=== PATIENT | female | born 1970 | race African-American/Black ===

== ENCOUNTER 2017-04-21 20:12 | Emergency (ER) | payer OTHER ==
[2017-04-21] MEDS ORDERED: DEXAMETHASONE SOD PHOS INJ 10 MG/1 ML VIAL IM ONE (20:40)
[2017-04-21] MEDS ORDERED: DIAZEPAM INJ 10 MG/2 ML DISP.SYRIN IM ONE (20:40)
[2017-04-21] MEDS ORDERED: KETOROLAC TROMETHAMINE 60 MG/2 ML SDV IM ONE (20:40)
--- NOTE | 2017-04-21 20:47 | ER Document Report ---
ED General - General Chief Complaint: Back Pain Stated Complaint: BACK PAIN Time Seen by Provider: 04/21/17 20:40 Mode of Arrival: Ambulatory Information source: Patient Notes: 47-year-old female history of chronic back pain presents with complaints of back spasm. 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 Has had this pain for 10 years, has used many medications in the past. Patient denies any cauda equina concerns TRAVEL OUTSIDE OF THE [place] IN LAST 30 DAYS: No - HPI Onset: Just prior to arrival Onset/Duration: Sudden Quality of pain: Cramping Severity: Moderate Pain Level: 3 Associated symptoms: Body/muscle aches Exacerbated by: Movement Relieved by: Other Similar symptoms previously: Yes Recently seen / treated by doctor: Yes - Related Data Allergies/Adverse Reactions: No Known Allergies Allergy (Verified 08/07/16 07:32) Past Medical History - Social History Smoking Status: Current Every Day Smoker Cigarette use (# per day): Yes Chew tobacco use (# tins/day): No Smoking Education Provided: No Frequency of alcohol use: None Drug Abuse: None Family History: Reviewed & Not Pertinent Patient has suicidal ideation: No Patient has homicidal ideation: No - Past Medical History Cardiac Medical History: Reports: Hx Hypertension Renal/ Medical History: Denies: Hx Peritoneal Dialysis Psychiatric Medical History: Reports: Hx Depression Past Surgical History: Reports: Hx Section - x3 - Immunizations Hx Diphtheria, Pertussis, Tetanus Vaccination: Yes - >10 yrs Review of Systems - Review of Systems Notes: REVIEW OF SYSTEMS: CONSTITUTIONAL : Denies fever, chills, or sweats. Denies recent illness. EENT: Denies eye, ear, throat, or mouth pain or symptoms. Denies nasal or sinus congestion or discharge. Denies throat, tongue, or mouth swelling or difficulty swallowing. CARDIOVASCULAR: Denies chest pain. Denies palpitations or racing or irregular heart beat. Denies ankle edema. RESPIRATORY: Denies cough, cold, or chest congestion. Denies shortness of breath, difficulty breathing, or wheezing. GASTROINTESTINAL: Denies abdominal pain or distention. Denies nausea, vomiting , or diarrhea. Denies blood in vomitus, stools, or per rectum. Denies black, tarry stools. Denies constipation. GENITOURINARY: Denies difficulty urinating, painful urination, burning, frequency, blood in urine, or discharge. FEMALE GENITOURINARY: Denies vaginal bleeding, heavy or abnormal periods, irregular periods. Denies vaginal discharge or odor. MUSCULOSKELETAL: Admits to back pain SKIN: Denies rash, lesions or sores. HEMATOLOGIC : Denies easy bruising or bleeding. LYMPHATIC: Denies swollen, enlarged glands. NEUROLOGICAL: Denies confusion or altered mental status. Denies passing out or loss of consciousness. Denies dizziness or lightheadedness. Denies headache. Denies weakness or paralysis or loss of use of either side. Denies problems with gait or speech. Denies sensory loss, numbness, or tingling. Denies seizures. PSYCHIATRIC: Denies anxiety or stress. Denies depression, suicidal ideation, or homicidal ideation. ALL OTHER SYSTEMS REVIEWED AND NEGATIVE. PHYSICAL EXAMINATION: GENERAL: Well-appearing, well-nourished and in moderate distress HEAD: Atraumatic, normocephalic. EYES: Pupils equal round and reactive to light, extraocular movements intact, conjunctiva are normal. ENT: Nares patent, oropharynx clear without exudates. Moist mucous membranes. NECK: Normal range of motion, supple without lymphadenopathy LUNGS: Breath sounds clear to auscultation bilaterally and equal. No wheezes rales or rhonchi. HEART: Regular rate and rhythm without murmurs ABDOMEN: Soft, nontender, nondistended abdomen. No guarding, no rebound. No masses appreciated. Female : deferred Musculoskeletal: Tenderness all throughout spasms of the back NEUROLOGICAL: Cranial nerves grossly intact. Normal speech, normal gait. Normal sensory, motor exams PSYCH: Normal mood, normal affect. SKIN: Warm, Dry, normal turgor, no rashes or lesions noted. Dictation was performed using [employer] voice recognition software Physical Exam - Vital signs Vitals: Temp Pulse Resp BP Pulse Ox 98.6 F 116 H 28 H 213/95 H 97 04/21/17 20:16 04/21/17 20:16 04/21/17 20:16 04/21/17 20:16 04/21/17 20:16 Course - Re-evaluation Re-evalutation: 04/21/17 20:47 Patient has no cauda equina concerns is otherwise well-appearing no distress. Patient will be discharged home after pain relief Patient instructed on risks and benefits of medications prescribed. Denies any concerns regarding such. After performing a Medical Screening Examination, I estimate there is LOW risk for EXPANDING OR RUPTURED ABDOMINAL AORTIC ANEURYSM, CAUDA EQUINA SYNDROME, EPIDURAL MASS LESION, or HERNIATED DISK CAUSING SEVERE SPINAL STENOSIS, thus I consider the discharge disposition reasonable. I have reevaluated this patient multiple times and no significant life threatening changes are noted. The patient and I have discussed the diagnosis and risks, and we agree with discharging home and close follow-up. We also discussed returning to the Emergency Department immediately if new or worsening symptoms occur with the understanding that symptoms and presentations can change. We have discussed the symptoms which are most concerning (e.g., saddle anesthesia, urinary or bowel incontinence or retention, changing or worsening pain) that necessitate immediate return. - Vital Signs Vital signs: Temp Pulse Resp BP Pulse Ox 98.6 F 116 H 28 H 213/95 H 97 04/21/17 20:16 04/21/17 20:16 04/21/17 20:16 04/21/17 20:16 04/21/17 20:16 Discharge - Discharge Clinical Impression: HTN (hypertension) Qualifiers: Hypertension type: essential hypertension Qualified Code(s): I10 - Essential ( primary) hypertension Back pain Qualifiers: Back pain location: low back pain Chronicity: acute Back pain laterality: bilateral Sciatica presence: without sciatica Qualified Code(s): M54.5 - Low back pain Condition: Stable Disposition: HOME, SELF-CARE Instructions: Low Back Pain ([facility]) Additional Instructions: Follow up with your physician tomorrow for further care or return to the ED IMMEDIATELY if symptoms worsen or new concerns occur. If you cannot afford to follow up with your primary care physician a list of low cost clinics have been provided at the end of your discharge papers as well. Prescriptions: Ketorolac Tromethamine [Toradol 10 mg Tablet] 10 mg PO Q6HP PRN #20 tablet PRN Reason: Diazepam [Valium 5 mg Tablet] 5 mg PO QIDP PRN #15 tablet PRN Reason: Prednisone [Deltasone 20 mg Tablet] 3 tab PO DAILY 5 Days tablet Forms: Return to Work, Parent Work Note
[2017-04-21 21:18] VITALS: BP 175/85
== END 2017-04-21 21:18 | disposition home or self-care (01) ==
LOC: ER 20:12
DX: I10 Essential (primary) hypertension (principal); M54.5 Low back pain; M54.9 Dorsalgia, unspecified; G89.29 Other chronic pain; F17.210 Nicotine dependence, cigarettes, uncomplicated
CPT/HCPCS: 99283; 96372; J3360; J1885; J1100

== ENCOUNTER 2017-05-23 07:23 | Emergency (ER) | payer OTHER ==
[2017-05-23] MEDS ORDERED: ALBUTEROL SULFATE 0.083% NEB 2.5 MG/3 ML AMPUL NEB ONE (07:58)
--- NOTE | 2017-05-23 07:58 | ER Document Report ---
ED Respiratory Problem - General Mode of Arrival: Ambulatory Information source: Patient TRAVEL OUTSIDE OF THE [place] IN LAST 30 DAYS: No - HPI Patient complains to provider of: Cough Onset: Other - see narrative Associated symptoms: Other - see narrative <WAYNE FELTON - Last Filed: 05/23/17 08:30> <MINNIE WELCH - Last Filed: 05/23/17 11:32> - General Chief Complaint: Breathing Difficulty Stated Complaint: DIFFICULTY BREATHING Time Seen by Provider: 05/23/17 07:43 Notes: Patient is a 47 year old female that presents to the emergency department today with multiple generalized complaints. Patient states her symptoms began 5 days ago with an "irritable cough". Patient also complains of a fever which spiked at 102 last night. Patient states that she developed sharp stabbing chest pain at 0400 this morning which increased in severity with deep breathing. Patient also mentions nausea, vomiting, and shortness of breath. Patient states she has used Theraflu, Tylenol cold, and Robitussin with minimal relief. Patient states she is not on any HTN meds because she "just found out" she had HTN one month ago after an evaluation in this ED. Patient mentions that she has noticed hand/ foot swelling off and on for the last several months. Patient denies any diarrhea. (WAYNE FELTON) - Related Data Allergies/Adverse Reactions: No Known Allergies Allergy (Verified 05/23/17 07:27) Past Medical History - General Information source: Patient, [facility] Records - Social History Smoking Status: Current Every Day Smoker Cigarette use (# per day): Yes Frequency of alcohol use: None Drug Abuse: None Lives with: Family Family History: Reviewed & Not Pertinent - Past Medical History Cardiac Medical History: Reports: Hx Hypertension - on no meds Psychiatric Medical History: Reports: Hx Depression Past Surgical History: Reports: Hx Section - x3 - Immunizations Hx Diphtheria, Pertussis, Tetanus Vaccination: Yes - >10 yrs <WAYNE FELTON - Last Filed: 05/23/17 08:30> Review of Systems - Review of Systems Constitutional: See HPI, Fever EENT: See HPI, Nose congestion Cardiovascular: See HPI, Chest pain Respiratory: See HPI, Cough, Short of breath Gastrointestinal: See HPI, Nausea, Vomiting. denies: Diarrhea Genitourinary: No symptoms reported Female Genitourinary: No symptoms reported Musculoskeletal: No symptoms reported Skin: No symptoms reported Hematologic/Lymphatic: No symptoms reported Neurological/Psychological: No symptoms reported -: Yes All other systems reviewed and negative <WAYNE FELTON - Last Filed: 05/23/17 08:30> Physical Exam - Vital signs Interpretation: Hypertensive <WAYNE FELTON - Last Filed: 05/23/17 08:30> <MINNIE WELCH - Last Filed: 05/23/17 11:32> - Vital signs Vitals: Temp Pulse Resp BP Pulse Ox 98.4 F 95 20 218/94 H 98 05/23/17 07:27 05/23/17 07:27 05/23/17 07:27 05/23/17 07:27 05/23/17 07:27 - Notes Notes: PHYSICAL EXAM GENERAL: Alert, interacts well. No acute distress. Hoarse sounding voice. Appears uncomfortable. HEAD: Normocephalic, atraumatic. EYES: Pupils equal, round, and reactive to light. Extraocular movements intact. ENT: Oral mucosa moist, tongue midline. Nasal congestion. Right sided turbinate edema. Cerumen impaction in bilateral external auditory canals. Cobblestoning in posterior oropharynx. NECK: Full range of motion. Supple. Trachea midline. LUNGS: Expiratory wheezing bilaterally, wet cough, coughs consistently with deep breathing, no rales or rhonchi. Appears mildly short of breath, particularly with coughing. HEART: Regular rate and rhythm. No murmurs, gallops, or rubs. ABDOMEN: Obese. Soft, non-tender. Non-distended. Bowel sounds present in all 4 quadrants. EXTREMITIES: Moves all 4 extremities spontaneously. No edema, radial and dorsalis pedis pulses 2/4 bilaterally. No cyanosis. NEUROLOGICAL: Alert and oriented x3. Normal speech. PSYCH: Normal affect, normal mood. SKIN: Warm, dry, normal turgor. No rashes or lesions noted. (WAYNE FELTON) Course - Laboratory Result Diagrams: 05/23/17 08:16 05/23/17 08:16 <WAYNE FELTON - Last Filed: 05/23/17 08:30> - Laboratory Result Diagrams: 05/23/17 08:16 05/23/17 08:16 <MINNIE WELCH - Last Filed: 05/23/17 11:32> - Re-evaluation Re-evalutation: 05/23/17 09:27 CBC shows mild anemia but no leukocytosis, CMP shows a glucose of 263, patient has not had steroids in 3 weeks, this is not fasting however it is still quite suspicious for diabetes as it is 263. Cardiac enzymes negative, chest x-ray does not show any sign of pneumonia, EKG is nonischemic. Discussed with patient that given her elevated blood sugar and her elevated blood pressure she will need to follow-up with her primary care physician as an outpatient. There is no indication for treating her asymptomatic hypertension at this time. Patient has been given an albuterol inhaler and prescription for steroids to go home with. She was also counseled on using Coricidin HBP rather than other decongestants. (MINNIE WELCH) - Vital Signs Vital signs: Temp Pulse Resp BP Pulse Ox 98.4 F 89 18 172/87 H 100 05/23/17 07:27 05/23/17 09:41 05/23/17 09:41 05/23/17 09:41 05/23/17 09:41 - Laboratory Laboratory results interpreted by me: 05/23/17 05/23/17 08:16 08:16 Hgb 11.3 L Hct 35.3 L MCH 25.5 L RDW 18.5 H Glucose 263 H AST 11 L - EKG Interpretation by Me Additional EKG results interpreted by me: 05/23/17 09:27 EKG shows sinus rhythm at 77, normal axis, normal intervals, no ST segment elevations or depressions, no T-wave inversions per my interpretation. (MINNIE WELCH) Discharge <WAYNE FELTON - Last Filed: 05/23/17 08:30> <MINNIE WELCH - Last Filed: 05/23/17 11:32> - Discharge Clinical Impression: Acute wheezy bronchitis, Upper respiratory infection with cough and congestion , Elevated blood sugar, Tobacco abuse, Tobacco abuse counseling Hypertension Qualifiers: Hypertension type: essential hypertension Qualified Code(s): I10 - Essential ( primary) hypertension Condition: Stable Disposition: HOME, SELF-CARE Additional Instructions: You appear to have bronchitis. Please use your albuterol inhaler 2 puffs every 4 hours scheduled for the next 48 hours, after that you may use it only as needed. If you need it more often than every 2 hours please return to the emergency department. Please take the steroids as directed until they are gone, this is the prednisone. For your congestion please use Coricidin HBP as directed on the box. This is available [id number]. Please avoid Sudafed and Benadryl as these will increase your blood pressure. Today your blood pressure and her blood sugar were both elevated. Your blood sugar was 263. You will need to see a primary care physician to be started on medication for your high blood pressure as well as your high blood sugar. I suspect you are a diabetic. Prescriptions: Benzonatate [Tessalon Perles 100 mg Capsule] 100 mg PO Q8HP PRN #40 capsule PRN Reason: Prednisone [Deltasone 20 mg Tablet] 3 tab PO DAILY 5 Days tablet Forms: Elevated Blood Pressure, Smoking Cessation Education Referrals: HANNAH JIN MD [ACTIVE STAFF] - Follow up in 1 week Scribe Attestation: 05/23/17 11:32 I personally performed the services described in the documentation, reviewed and edited the documentation which was dictated to the scribe in my presence, and it accurately records my words and actions. (MINNIE WELCH) Scribe Documentation - Scribe Written by Oscar:: Oscar Arteaga, 05/23/2017 [id number] acting as scribe for :: Alem <WAYNE FELTON - Last Filed: 05/23/17 08:30>
[2017-05-23] MEDS ORDERED: PREDNISONE 20 MG TABLET PO ONE (08:00)
[2017-05-23] MEDS ORDERED: NORMAL SALINE 1000 ML 1,000 ML IV ONE (08:00)
[2017-05-23 08:32] LABS: ABSOLUTE EOSINOPHILS # (AUTO) 0.2 10^3/uL (0.0-0.6); ABSOLUTE LYMPHOCYTES (AUTO) 1.3 10^3/uL (0.5-4.7); ABSOLUTE MONOCYTES (AUTO) 0.5 10^3/uL (0.1-1.4); BASOPHILS % (AUTO) 0.4 % (0-2); EOSINOPHILS % (AUTO) 1.9 % (0-6); HEMATOCRIT 35.3 % (36.0-47.0); HEMOGLOBIN 11.3 g/dL (12.0-15.5); HGB HCT DIFFERENCE -1.4; MEAN CORPUSCULAR HEMOGLOBIN 25.5 pg (27.0-33.4); MEAN CORPUSCULAR HGB CONC 32.1 g/dL (32.0-36.0); MEAN CORPUSCULAR VOLUME 80 fl (80-97); MONOCYTES % (AUTO) 6.7 % (3-13); RED BLOOD COUNT 4.44 10^6/uL (3.72-5.28); RED CELL DISTRIBUTION WIDTH 18.5 % (11.5-14.0)
[2017-05-23 08:44] LABS: ALANINE AMINOTRANSFERASE 17 U/L (9-52); ALBUMIN 3.6 g/dL (3.5-5.0); ALKALINE PHOSPHATASE 116 U/L (38-126); ANION GAP 12 (5-19); ASPARTATE AMINO TRANSFERASE 11 U/L (14-36); BILIRUBIN,DIRECT 0.3 mg/dL (0.0-0.4); BILIRUBIN,TOTAL 0.3 mg/dL (0.2-1.3); BLOOD UREA NITROGEN 7 mg/dL (7-20); CALCIUM 9.1 mg/dL (8.4-10.2); CARBON DIOXIDE 22 mmol/L (22-30); CHLORIDE 103 mmol/L (98-107); CREATINE KINASE 94 U/L (30-135); CREATININE RESULT 0.75 mg/dL (0.52-1.25); GLUCOSE 263 mg/dL (75-110); POTASSIUM 4.3 mmol/L (3.6-5.0); SODIUM 137.3 mmol/L (137-145); TOTAL PROTEIN 6.4 g/dL (6.3-8.2)
--- NOTE | 2017-05-23 08:55 | RADIOLOGY REPORT (SQ) ---
EXAM DESCRIPTION: CHEST PA/LAT COMPLETED DATE/TIME: 05/23/2017 8:33 am REASON FOR STUDY: cough, fever, wheeze COMPARISON: None. EXAM PARAMETERS: NUMBER OF VIEWS: two views TECHNIQUE: Digital Frontal and Lateral radiographic views of the chest acquired. RADIATION DOSE: NA LIMITATIONS: none FINDINGS: LUNGS AND PLEURA: No opacities, masses or pneumothorax. No pleural effusion. MEDIASTINUM AND HILAR STRUCTURES: No masses or contour abnormalities. HEART AND VASCULAR STRUCTURES: Heart normal size. No evidence for failure. BONES: No acute findings. HARDWARE: None in the chest. OTHER: No other significant finding. IMPRESSION: NO SIGNIFICANT RADIOGRAPHIC FINDING IN THE CHEST. TECHNICAL DOCUMENTATION: JOB ID: [id number] [employer]- All Rights Reserved
[2017-05-23 08:56] LABS: CREATINE KINASE MB 0.89 ng/mL (<4.55)
[2017-05-23 08:59] LABS: TROPONIN I < 0.012 ng/mL
[2017-05-23] MEDS ORDERED: ALBUTEROL SULFATE HFA (90 MCG/PUFF) 8 GM MDI (1 MDI/ER DISP) IH ONE (09:26)
[2017-05-23 09:43] VITALS: BP 172/87
--- NOTE | 2017-05-23 21:03 | EKG REPORT ---
SEVERITY:- NORMAL ECG - SINUS RHYTHM : Confirmed by: Juani Melendez MD 23-May-2017 21:02:46
== END 2017-05-23 09:43 | disposition home or self-care (01) ==
LOC: ER 07:23
DX: J20.9 Acute bronchitis, unspecified (principal); R73.9 Hyperglycemia, unspecified; J06.9 Acute upper respiratory infection, unspecified; I10 Essential (primary) hypertension; R11.2 Nausea with vomiting, unspecified; F17.210 Nicotine dependence, cigarettes, uncomplicated
CPT/HCPCS: 93005; 94640; 99285; 36415; 82553; 82550; 85025; 80053; 84484; 71020; 93010; J7512; J7030; J3490

== ENCOUNTER 2017-08-28 08:17 | Emergency (ER) | payer OTHER ==
--- NOTE | 2017-08-28 08:54 | ER Document Report ---
ED General - General Mode of Arrival: Ambulatory TRAVEL OUTSIDE OF THE [place] IN LAST 30 DAYS: No <STACEY MASSEY - Last Filed: 08/28/17 11:18> <MINNIE WELCH - Last Filed: 08/28/17 18:01> - General Chief Complaint: Blood Pressure Problem Stated Complaint: KNEE PAIN BLOOD PRESSURE ISSUES Time Seen by Provider: 08/28/17 08:38 Notes: Patient is a 47 year old female with a history of hypertension presents to the emergency department complaining of multiple symptoms including general malaise , current high blood pressure, pain with her right knee and swelling and redness of her eyes. Patient states she feels as if her blood pressure has been high due to her having nausea, vomiting, a headache, and dizziness. Patient states she woke up this morning and immediately vomited. Patient states that her eyes frequently swell with erythema and that Predinose typically helps with those symptoms. Patient states that for the last 3 weeks she has had right knee pain with increasing instability. Patient denies chest pain, any fall or injury , trouble breathing, fevers, or abdominal pain. Patient states she does not have any medications for her HTN. (STACEY MASSEY) - Related Data Allergies/Adverse Reactions: No Known Allergies Allergy (Verified 08/28/17 08:18) Past Medical History - General Information source: Patient - Social History Smoking Status: Former Smoker Cigarette use (# per day): No Chew tobacco use (# tins/day): No Frequency of alcohol use: None Drug Abuse: None Family History: Reviewed & Not Pertinent - Past Medical History Cardiac Medical History: Reports: Hx Hypertension - on no meds Psychiatric Medical History: Reports: Hx Depression Past Surgical History: Reports: Hx Section - x3 - Immunizations Hx Diphtheria, Pertussis, Tetanus Vaccination: Yes - >10 yrs <STACEY MASSEY - Last Filed: 08/28/17 11:18> Review of Systems - Review of Systems Constitutional: No symptoms reported EENT: See HPI Cardiovascular: See HPI, Dizziness Respiratory: No symptoms reported Gastrointestinal: No symptoms reported Genitourinary: No symptoms reported Female Genitourinary: No symptoms reported Musculoskeletal: See HPI Skin: No symptoms reported Hematologic/Lymphatic: No symptoms reported Neurological/Psychological: See HPI, Headaches -: Yes All other systems reviewed and negative <STACEY MASSEY - Last Filed: 08/28/17 11:18> Physical Exam <STACEY MASSEY - Last Filed: 08/28/17 11:18> <FRANCISGRACIELAMINNIE - Last Filed: 08/28/17 18:01> - Vital signs Vitals: Temp Pulse Resp BP Pulse Ox 98.4 F 85 20 171/79 H 98 08/28/17 08:27 08/28/17 08:27 08/28/17 08:27 08/28/17 08:27 08/28/17 08:27 - Notes Notes: GENERAL: Alert, interacts well. No acute distress. HEAD: Normocephalic, atraumatic. EYES: Pupils equal, round, and reactive to light. Extraocular movements intact. Some erythema medial aspect of eyelids. ENT: Oral mucosa moist, tongue midline. NECK: Full range of motion. Supple. Trachea midline. LUNGS: Clear to auscultation bilaterally, no wheezes, rales, or rhonchi. No respiratory distress. HEART: Mild tachycardia. No murmurs, gallops, or rubs. ABDOMEN: Soft, non-tender. Non-distended. Bowel sounds present in all 4 quadrants. EXTREMITIES: Moves all 4 extremities spontaneously. right medial joint keyliner to palpation, some tenderness medially with lateral stress, no swelling or redness. . No ligament laxity bilaterally. trace edema bilaterally, radial and dorsalis pedis pulses 2/4 bilaterally. No cyanosis. NEUROLOGICAL: Alert and oriented x3. Normal speech. Biceps and patellar DTRs 2 + bilaterally. PSYCH: Normal affect, normal mood. SKIN: Warm, dry, normal turgor. (STACEY MASSEY) Course - Laboratory Result Diagrams: 08/28/17 09:00 08/28/17 09:00 <STACEY MASSEY - Last Filed: 08/28/17 11:18> - Laboratory Result Diagrams: 08/28/17 09:00 08/28/17 09:00 <MINNIE WELCH - Last Filed: 08/28/17 18:01> - Re-evaluation Re-evalutation: 08/28/17 11:02 CBC shows moderate anemia with hemoglobin 10.2 otherwise unremarkable, chemistries show elevated glucose at 157 however she has not been fasting, there is no evidence of liver or kidney damage. Knee is not grossly unstable. Patient has neoprene brace at home but states that it feels tight some days so we will apply an Edinson wrap. Patient is wearing very tight skinny jeans, Edinson wrap will be applied over top of the jeans so she knows how to apply it. Patient is aware that normally should be worn underneath her clothing. 08/28/17 11:16 Given Edinson wrap, declined to have it applied here. (MINNIE WELCH) - Vital Signs Vital signs: Temp Pulse Resp BP Pulse Ox 98.2 F 81 18 187/91 H 99 08/28/17 11:15 08/28/17 11:15 08/28/17 11:15 08/28/17 11:15 08/28/17 11:15 - Laboratory Laboratory results interpreted by me: 08/28/17 08/28/17 09:00 09:00 Hgb 10.2 L Hct 33.0 L MCV 76 L MCH 23.4 L MCHC 30.8 L RDW 16.7 H Glucose 157 H AST 11 L Total Protein 6.2 L Discharge <STACEY MASSEY - Last Filed: 08/28/17 11:18> <MINNIE WELCH - Last Filed: 08/28/17 18:01> - Discharge Clinical Impression: Right medial knee pain, Facial rash Hypertension Qualifiers: Hypertension type: essential hypertension Qualified Code(s): I10 - Essential ( primary) hypertension Condition: Stable Disposition: HOME, SELF-CARE Additional Instructions: For your high blood pressure I have started you on lisinopril. Sometimes this can cause swelling of the lips, mouth, tongue or throat. If you experience any of that swelling please stop taking the medication and return to the emergency department immediately. Your facial rash may simply be allergies, please take Claritin [id number] every day. Your facial rash is also suspicious for lupus. It is important that if the Claritin does not clear up your facial rash that you follow-up with Dr. Nevarez as an outpatient. Please use the Edinson wrap for your right knee pain. There is no evidence of ligamentous instability today however you have had some of this in the past when walking around. Please use the Edinson wrap and her neoprene brace as needed. Prescriptions: Lisinopril 10 mg PO DAILY #30 tablet Loratadine [Claritin 10 mg Tablet] 10 mg PO DAILY #30 tablet Forms: Elevated Blood Pressure Referrals: HANNAH NEVAREZ MD [ACTIVE STAFF] - Follow up in 1 week Scribe Attestation: 08/28/17 18:01 I personally performed the services described in the documentation, reviewed and edited the documentation which was dictated to the scribe in my presence, and it accurately records my words and actions. (MINNIE WELCH) Scribe Documentation - Scribe Written by Oscar:: Oscar Cortez, 08/28/2017 09:21 acting as scribe for :: Alem <STACEY MASSEY - Last Filed: 08/28/17 11:18>
[2017-08-28 09:17] LABS: ABSOLUTE BASOPHILS # (AUTO) 0.1 10^3/uL (0.0-0.2); ABSOLUTE EOSINOPHILS # (AUTO) 0.1 10^3/uL (0.0-0.6); ABSOLUTE LYMPHOCYTES (AUTO) 2.2 10^3/uL (0.5-4.7); ABSOLUTE MONOCYTES (AUTO) 0.6 10^3/uL (0.1-1.4); ABSOLUTE NEUT (AUTO) 6.9 10^3/uL (1.7-8.2); BASOPHILS % (AUTO) 0.6 % (0-2); HEMOGLOBIN 10.2 g/dL (12.0-15.5); LYMPHOCYTES % (AUTO) 22.4 % (13-45); MEAN CORPUSCULAR HEMOGLOBIN 23.4 pg (27.0-33.4); MEAN CORPUSCULAR HGB CONC 30.8 g/dL (32.0-36.0); MEAN CORPUSCULAR VOLUME 76 fl (80-97); PLATELET COUNT 417 10^3/uL (150-450); RED BLOOD COUNT 4.34 10^6/uL (3.72-5.28); RED CELL DISTRIBUTION WIDTH 16.7 % (11.5-14.0); TOTAL CELLS COUNTED % (AUTO) 100 %; WHITE BLOOD COUNT 9.9 10^3/uL (4.0-10.5)
[2017-08-28 09:34] LABS: ALANINE AMINOTRANSFERASE 21 U/L (9-52); ALBUMIN 3.7 g/dL (3.5-5.0); ALKALINE PHOSPHATASE 117 U/L (38-126); ANION GAP 9 (5-19); ASPARTATE AMINO TRANSFERASE 11 U/L (14-36); BILIRUBIN,DIRECT 0.2 mg/dL (0.0-0.4); BILIRUBIN,TOTAL 0.3 mg/dL (0.2-1.3); BLOOD UREA NITROGEN 10 mg/dL (7-20); CALCIUM 9.6 mg/dL (8.4-10.2); CARBON DIOXIDE 28 mmol/L (22-30); CHLORIDE 102 mmol/L (98-107); GLUCOSE 157 mg/dL (75-110); POTASSIUM 4.6 mmol/L (3.6-5.0); SODIUM 138.6 mmol/L (137-145); TOTAL PROTEIN 6.2 g/dL (6.3-8.2)
[2017-08-28 11:21] VITALS: BP 187/91
== END 2017-08-28 11:20 | disposition home or self-care (01) ==
LOC: ER 08:17
DX: M25.561 Pain in right knee (principal); R21 Rash and other nonspecific skin eruption; I10 Essential (primary) hypertension; R53.81 Other malaise; R11.2 Nausea with vomiting, unspecified; Z87.891 Personal history of nicotine dependence
CPT/HCPCS: 36415; 80053; 85025; 99283

== ENCOUNTER 2017-09-23 11:42 | Emergency (ER) | payer OTHER ==
[2017-09-23 11:56] VITALS: BP 176/83
--- NOTE | 2017-09-23 14:02 | ER Document Report ---
HPI - HPI Pain Level: 2 Notes: Patient is a 47-year-old female who presents the ED complaining of cracked dry skin on her eyelids bilaterally 3 weeks. Patient states that she has had this issue before needed prednisone which cleared it. Patient states that she has a clear discharge every now and again from the cracked areas on the skin. Patient states that the discharge does irritate her eyes on occasion she will get some blurriness. Patient states that her eyelids itch as well. Patient states that her eyeballs do not bother her at all. Patient states that she can look around the room without any difficulties. She has not had any other recent illness. She denies any drug allergies. Patient has not been seen by an workforce advisor or jump roll operator or deckhand tuna boat for this condition in the past. Patient has not addressed this issue with her PCM as well. Denies any headache, fever, head injury, neck pain, URI, sore throat, chest pain, palpitations, syncope, cough, shortness of breath, wheeze, dyspnea, abdominal pain, nausea/vomiting/diarrhea, urinary retention, dysuria, hematuria, or rash. - ROS Notes: REVIEW OF SYSTEMS: CONSTITUTIONAL : Denies fever, chills, or sweats. Denies recent illness. EENT: see hpi CARDIOVASCULAR: Denies chest pain. Denies palpitations or racing or irregular heart beat. Denies ankle edema. RESPIRATORY: Denies cough, cold, or chest congestion. Denies shortness of breath, difficulty breathing, or wheezing. GASTROINTESTINAL: Denies abdominal pain or distention. Denies nausea, vomiting , or diarrhea. Denies blood in vomitus, stools, or per rectum. Denies black, tarry stools. Denies constipation. GENITOURINARY: Denies difficulty urinating, painful urination, burning, frequency, blood in urine, or discharge. MUSCULOSKELETAL: Denies back or neck pain or stiffness. Denies joint pain or swelling. SKIN: see hpi NEUROLOGICAL: Denies confusion or altered mental status. Denies passing out or loss of consciousness. Denies dizziness or lightheadedness. Denies headache. Denies weakness or paralysis or loss of use of either side. Denies problems with gait or speech. Denies sensory loss, numbness, or tingling. Denies seizures. ALL OTHER SYSTEMS REVIEWED AND NEGATIVE. Dictation was performed using Dragon voice recognition software - CONSTITUTIONAL Constitutional: DENIES: Fever, Chills - EENT EENT: REPORTS: Eye problems. DENIES: Sore Throat, Ear Pain - NEURO Neurology: DENIES: Headache, Weakness, Vision blurred, Dizzinesss / Vertigo - CARDIOVASCULAR Cardiovascular: DENIES: Chest pain - RESPIRATORY Respiratory: DENIES: Trouble Breathing, Coughing - GASTROINTESTINAL Gastrointestinal: DENIES: Abdominal Pain, Black / Bloody Stools - URINARY Urinary: DENIES: Dysuria, Urgency, Frequency - REPRODUCTIVE Reproductive: DENIES: : - MUSCULOSKELETAL Musculoskeletal: DENIES: Extremity pain Past Medical History - Social History Smoking Status: Unknown if Ever Smoked Chew tobacco use (# tins/day): No Frequency of alcohol use: None Drug Abuse: None Family History: Reviewed & Not Pertinent Patient has suicidal ideation: No Patient has homicidal ideation: No - Past Medical History Cardiac Medical History: Reports: Hx Hypertension - on no meds Renal/ Medical History: Denies: Hx Peritoneal Dialysis Psychiatric Medical History: Reports: Hx Depression Past Surgical History: Reports: Hx Section - x3 - Immunizations Hx Diphtheria, Pertussis, Tetanus Vaccination: Yes - >10 yrs Vertical Provider Document - CONSTITUTIONAL Agree With Documented VS: Yes Notes: PHYSICAL EXAMINATION: GENERAL: Well-appearing, well-nourished and in no acute distress. A&Ox4 HEAD: Atraumatic, normocephalic. EYES: Pupils equal round and reactive to light, extraocular movements intact, sclera anicteric, conjunctiva are normal. Lids b/l: + dry cracked lichenified skin medially b/l. + clear discharge from cracked skin. Non-tender. no abscess or streaks. ENT: EAC clear b/l. TM's intact b/l without erythema, fluid, or perforation. Nares patent and without discharge. oropharynx clear without exudates. No tonsilar hypertrophy or erythema. Moist mucous membranes. No sinus tenderness. NECK: Normal range of motion, supple without lymphadenopathy. No rigidity/ meningismus. LUNGS: Breath sounds clear to auscultation bilaterally and equal. No wheezes rales or rhonchi. HEART: Regular rate and rhythm without murmurs, rubs, gallops. Extremities: No cyanosis, clubbing, or edema b/l. Peripheral pulses 2+. Capillary refill less than 3 seconds. NEUROLOGICAL: Cranial nerves grossly intact. Normal speech, normal gait. Normal sensory, motor exams PSYCH: Normal mood, normal affect. SKIN: see eye exam. Warm, Dry, normal turgor, no rashes or lesions noted. - INFECTION CONTROL TRAVEL OUTSIDE OF THE [place] IN LAST 30 DAYS: No - RESPIRATORY O2 Sat by Pulse Oximetry: 98 Course - Re-evaluation Re-evalutation: 09/23/17 14:14 Patient is an afebrile, well-hydrated, 47-year-old female who presents to the ED with a dermatitis to the eyelids not otherwise specified. Vitals are stable. PE is otherwise unremarkable. Low suspicion for any retained corneal or lid foreign body, deep space infection including orbital cellulitis/abscess, acute glaucoma, penetrating globe injury, retinal detachment, meningitis, sepsis , fracture, compartment syndrome. I will send her home with a Rx for prednisone. Conservative measures otherwise for symptoms with proper handwashing. Recheck with your PCM in 3-5 days. Schedule a f/u with Ophthalmology/jump roll operator next week. Return to the ED with any worsening/ concerning symptoms otherwise as reviewed in discharge. Patient is in agreement. - Vital Signs Vital signs: Temp Pulse Resp BP Pulse Ox 98.6 F 84 20 176/83 H 98 09/23/17 11:55 09/23/17 11:55 09/23/17 11:55 09/23/17 11:55 09/23/17 11:55 Discharge - Discharge Clinical Impression: Dermatitis, eyelid Qualifiers: Laterality: bilateral Qualified Code(s): H01.9 - Unspecified inflammation of eyelid Condition: Stable Disposition: HOME, SELF-CARE Instructions: Air Cargo Specialist Additional Instructions: Keep the skin clean Wash with soap and water Tylenol/ibuprofen if needed Triple antibiotic ointment daily Take medication as directed Monitor for any worsening symptoms Recheck with your PCM in 3-5 days Consider consult with a Air Cargo Specialist/Pellet Mill Operator for ongoing/worsening symptoms Return to the ED with any worsening symptoms and/or development of fever, headache, chest pain, palpitations, syncope, shortness of breath, trouble breathing, abdominal pain, n/v/d, abscess, purulent discharge, red streaks, worsening swelling, or other worsening symptoms that are concerning to you. Prescriptions: Prednisone [Deltasone 10 mg Tablet] 10 mg PO ASDIR PRN #21 tablet PRN Reason: Forms: Elevated Blood Pressure Referrals: HANNAH JIN MD [Primary Care Provider] - Follow up in 3-5 days JACQUE GIBBS DO [ACTIVE STAFF] - Follow up as needed LACIE MENDIOLA DO [ACTIVE STAFF] - Follow up as needed
== END 2017-09-23 14:06 | disposition home or self-care (01) ==
LOC: ER 11:42
DX: H01.9 Unspecified inflammation of eyelid (principal); H57.13 Ocular pain, bilateral
CPT/HCPCS: 99283

== ENCOUNTER → 2017-10-31 | Outpatient (CLI) | payer BC ==
--- NOTE | 2017-10-31 16:13 | RADIOLOGY REPORT (SQ) ---
EXAM DESCRIPTION: LUMBAR SPINE COMPLETE COMPLETED DATE/TIME: 10/31/2017 2:04 pm REASON FOR STUDY: LUMBAGO WITH SCIATICA, UNSPECIFIED SIDE M54.40 LUMBAGO WITH SCIATICA, UNSPECIFIED SIDE COMPARISON: 08/07/2016 NUMBER OF VIEWS: Five views including obliques. TECHNIQUE: AP, lateral, oblique, and sacral radiographic images acquired of the lumbar spine. LIMITATIONS: None. FINDINGS: MINERALIZATION: Normal. SEGMENTATION: Sacralization of L5. ALIGNMENT: Normal. VERTEBRAE: Maintained height. No fracture or worrisome bone lesion. DISCS: Preserved height. No significant osteophytes or end plate irregularity. POSTERIOR ELEMENTS: Pedicles and facets are intact. No pars defect or posterior arch defects. HARDWARE: None in the spine. PARASPINAL SOFT TISSUES: Normal. PELVIS: Intact as visualized. No fractures or worrisome bone lesions. SI joints intact. OTHER: No other significant finding. IMPRESSION: No acute findings. No significant change. TECHNICAL DOCUMENTATION: JOB ID: [id number] [employer]- All Rights Reserved Reading location - IP/workstation name: [email or web address]
== END ==
LOC: OD 13:41
PROVIDERS: ATTEND Physician Assistant
DX: M54.40 Lumbago with sciatica, unspecified side (principal)
CPT/HCPCS: 72110

== ENCOUNTER → 2018-03-10 | Outpatient (CLI) | payer BC ==
--- NOTE | 2018-03-10 12:25 | RADIOLOGY REPORT (SQ) ---
EXAM DESCRIPTION: KNEE RIGHT 4 VIEWS COMPLETED DATE/TIME: 03/10/2018 12:04 pm REASON FOR STUDY: RT KNEE PAIN;UNSPECIFIED CHRONICITY COMPARISON: None. NUMBER OF VIEWS: Four views. TECHNIQUE: AP, lateral, and both oblique radiographic images acquired of the right knee. LIMITATIONS: None. FINDINGS: MINERALIZATION: Normal. BONES: No acute fracture or dislocation. No worrisome bone lesions. JOINT: Significant narrowing of the medial compartment with marginal osteophytes. Small posterior pa tellar osteophytes are present. No significant joint effusion is seen. SOFT TISSUES: No soft tissue swelling. No radio-opaque foreign body. OTHER: No other significant finding. IMPRESSION: Degenerative joint disease. TECHNICAL DOCUMENTATION: JOB ID: [id number] [employer]- All Rights Reserved Reading location - IP/workstation name: [email or web address]
== END ==
LOC: OD 11:51
PROVIDERS: ATTEND Physician Assistant
DX: M25.561 Pain in right knee (principal); M17.11 Unilateral primary osteoarthritis, right knee

== ENCOUNTER → 2018-10-20 | Outpatient (CLI) | payer BC ==
--- NOTE | 2018-10-20 11:23 | RADIOLOGY REPORT (SQ) ---
EXAM DESCRIPTION: U/S RETROPERITON (RENAL/AORTA) COMPLETED DATE/TIME: 10/20/2018 10:49 am REASON FOR STUDY: R30.0 DYSURIA R31.9 HEMATURIA, UNSPECIFIED R30.0 DYSURIA R31.9 HEMATURIA, UNSPEC IFIED COMPARISON: None. TECHNIQUE: Dynamic and static grayscale images acquired of the kidneys and bladder and recorded on P ACS. Additional selected color Doppler and spectral images recorded. LIMITATIONS: None. FINDINGS: RIGHT KIDNEY: The right kidney measures 12.3 x 5.4 x 6.0 cm, normal size. Normal echogeni city. No solid or suspicious masses. No hydronephrosis. No calcifications. LEFT KIDNEY: The left kidney measures 13.1 x 5.7 x 5.6 cm, normal size. Normal echogenicity. No sachi d or suspicious masses. No hydronephrosis. No calcifications. BLADDER: The urinary bladder is empty. OTHER FINDINGS: No other significant finding. IMPRESSION: 1. NORMAL RENAL ULTRASOUND. TECHNICAL DOCUMENTATION: JOB ID: [id number] [employer]- All Rights Reserved Reading location - IP/workstation name: [email or web address]
== END ==
LOC: RAD 10:25
PROVIDERS: ATTEND Physician Assistant
DX: R30.0 Dysuria (principal); R31.9 Hematuria, unspecified
CPT/HCPCS: 76770

== ENCOUNTER 2019-01-13 17:39 | Emergency (ER) | payer BC ==
[2019-01-13] MEDS ORDERED: OXYCODONE-ACETAMINOPHEN 5-325 MG TABLET PO ONE (18:02)
--- NOTE | 2019-01-13 18:04 | ER Document Report ---
ED Medical Screen (RME) - General Chief Complaint: Vaginal Bleeding Stated Complaint: VAGINAL BLEEDING Time Seen by Provider: 01/13/19 18:02 Primary Care Provider: EDWARD FRANK PA [Primary Care Provider] - Follow up as needed Mode of Arrival: Ambulatory Information source: Patient Notes: 48-year-old female presented to ED for complaint of pelvic pain with vaginal bleeding. She states she is having very large clots. States she went to Dr. Warner about a week or so ago after bleeding for 3 weeks. He states she put her on some hormones that she took for 7 days. She states she had 2 days with no bleeding and then today she has very large clots and she is very worried and concerned. She states he did an ultrasound and told her everything was okay and that everything was can be okay taking these control. She does smoke half pack a day and is on pain management. I have greeted and performed a rapid initial assessment of this patient. A comp rehensive ED assessment and evaluation of the patient, analysis of test results and completion of medical decision making process will be conducted by an additional ED providers. Dictation of this chart was performed using voice recognition software; therefore, there may be some unintended grammatical errors. TRAVEL OUTSIDE OF THE [place] IN LAST 30 DAYS: No - Related Data Allergies/Adverse Reactions: No Known Allergies Allergy (Verified 01/13/19 17:42) Past Medical History - Social History Chew tobacco use (# tins/day): No Frequency of alcohol use: None Drug Abuse: None - Past Medical History Cardiac Medical History: Reports: Hx Hypertension - on no meds Renal/ Medical History: Denies: Hx Peritoneal Dialysis Psychiatric Medical History: Reports: Hx Depression Past Surgical History: Reports: Hx Section - x3 - Immunizations Hx Diphtheria, Pertussis, Tetanus Vaccination: Yes - >10 yrs Physical Exam - Vital signs Vitals: Temp Pulse Resp BP Pulse Ox 98.4 F 93 22 H 184/91 H 98 01/13/19 17:53 01/13/19 17:53 01/13/19 17:53 01/13/19 17:53 01/13/19 17:53 Course - Vital Signs Vital signs: Temp Pulse Resp BP Pulse Ox 98.4 F 93 22 H 184/91 H 98 01/13/19 17:53 01/13/19 17:53 01/13/19 17:53 01/13/19 17:53 01/13/19 17:53 Doctor's Discharge - Discharge Referrals: EDWARD FRANK PA [Primary Care Provider] - Follow up as needed
[2019-01-13 19:03] LABS: ABSOLUTE EOSINOPHILS # (AUTO) 0.1 10^3/uL (0.0-0.6); ABSOLUTE LYMPHOCYTES (AUTO) 2.4 10^3/uL (0.5-4.7); ABSOLUTE MONOCYTES (AUTO) 0.6 10^3/uL (0.1-1.4); ABSOLUTE NEUT (AUTO) 7.6 10^3/uL (1.7-8.2); BASOPHILS % (AUTO) 0.5 % (0-2); EOSINOPHILS % (AUTO) 0.8 % (0-6); HEMOGLOBIN 12.3 g/dL (12.0-15.5); MEAN CORPUSCULAR HEMOGLOBIN 27.1 pg (27.0-33.4); MEAN CORPUSCULAR HGB CONC 32.4 g/dL (32.0-36.0); MEAN CORPUSCULAR VOLUME 84 fl (80-97); PLATELET COUNT 380 10^3/uL (150-450); RED BLOOD COUNT 4.54 10^6/uL (3.72-5.28); RED CELL DISTRIBUTION WIDTH 17.9 % (11.5-14.0); SEGMENTED NEUTROPHILS % (AUTO) 70.7 % (42-78); TOTAL CELLS COUNTED % (AUTO) 100 %; WHITE BLOOD COUNT 10.7 10^3/uL (4.0-10.5)
[2019-01-13 19:06] LABS: APPEARANCE,URINE CLEAR; BILIRUBIN,URINE NEGATIVE (NEGATIVE); COLOR,URINE STRAW; GLUCOSE, URINE NEGATIVE (NEGATIVE); KETONES,URINE NEGATIVE (NEGATIVE); LEUKOCYTE ESTERASE,URINE NEGATIVE (NEGATIVE); NITRITE,URINE NEGATIVE (NEGATIVE); PROTEIN,URINE NEGATIVE (NEGATIVE); URINE SPECIFIC GRAVITY 1.005; UROBILINOGEN,URINE NEGATIVE mg/dL (<2.0)
[2019-01-13 19:21] LABS: ALANINE AMINOTRANSFERASE 20 U/L (9-52); ALBUMIN 3.8 g/dL (3.5-5.0); ALKALINE PHOSPHATASE 104 U/L (38-126); ANION GAP 8 (5-19); ASPARTATE AMINO TRANSFERASE 13 U/L (14-36); BILIRUBIN,DIRECT 0.2 mg/dL (0.0-0.4); BILIRUBIN,TOTAL 0.2 mg/dL (0.2-1.3); BLOOD UREA NITROGEN 8 mg/dL (7-20); CALCIUM 9.8 mg/dL (8.4-10.2); CARBON DIOXIDE 26 mmol/L (22-30); CHLORIDE 104 mmol/L (98-107); GLUCOSE 122 mg/dL (75-110); POTASSIUM 4.4 mmol/L (3.6-5.0); TOTAL PROTEIN 6.8 g/dL (6.3-8.2)
[2019-01-13] MEDS ORDERED: ONDANSETRON HCL INJ/PF 4 MG/2 ML SDV IV ONE (19:55)
[2019-01-13] MEDS ORDERED: HYDROMORPHONE HCL INJ/PF 2 MG/ML AMPULE IV ONE (19:55)
--- NOTE | 2019-01-13 20:03 | ER Document Report ---
ED General - General Chief Complaint: Vaginal Bleeding Stated Complaint: VAGINAL BLEEDING Time Seen by Provider: 01/13/19 18:02 Primary Care Provider: EDWARD FRANK PA [NO LOCAL MD] - Follow up as needed Mode of Arrival: Ambulatory Information source: Patient TRAVEL OUTSIDE OF THE [place] IN LAST 30 DAYS: No - HPI Patient complains to provider of: Pelvic pain and vaginal bleeding Onset: Other - 3 weeks Onset/Duration: Constant, Waxing and waning Severity: Severe Pain Level: 4 Associated symptoms: None Relieved by: Denies Similar symptoms previously: No Recently seen / treated by doctor: No Notes: 48-year-old female coming in today with mid low pelvic pain and bleeding large clots. 6 months ago she was having similar symptoms. She saw her astrochemist. He did an ultrasound said everything was fine. Did a course of Provera and then started her on control pills. These seem to have somewhat helped her symptoms but she continues to have intermittent heavy bleeding. Not having any dizziness, lightheadedness, blacking out episodes. - Related Data Allergies/Adverse Reactions: No Known Allergies Allergy (Verified 01/13/19 17:42) Past Medical History - General Information source: Patient - Social History Smoking Status: Current Every Day Smoker Chew tobacco use (# tins/day): No Frequency of alcohol use: None Drug Abuse: None Family History: Reviewed & Not Pertinent Patient has suicidal ideation: No Patient has homicidal ideation: No - Past Medical History Cardiac Medical History: Reports: Hx Hypertension - on no meds Renal/ Medical History: Denies: Hx Peritoneal Dialysis Psychiatric Medical History: Reports: Hx Depression Past Surgical History: Reports: Hx Section - x3 - Immunizations Hx Diphtheria, Pertussis, Tetanus Vaccination: Yes - >10 yrs Review of Systems - Review of Systems Notes: Constitutional: No fevers. No chills. EENT: No eye redness. No eye pain. No ear pain. No sore throat. Cardiovascular: No chest pain. No palpitations. Respiratory: No cough. No shortness of breath. No respiratory distress. Gastrointestinal: No abdominal pain. No nausea, vomiting, or diarrhea. Genitourinary: Positive for mid pelvic pain. Positive for heavy vaginal bleeding with clots Musculoskeletal: Atraumatic. No swelling. No deformities. Skin: No rash or lesions. Lymphatic: No swollen lymph nodes. Neurologic: No headache. No syncope. Psychiatric: No suicidal or homicidal ideation. Physical Exam - Vital signs Vitals: Temp Pulse Resp BP Pulse Ox 98.4 F 93 22 H 184/91 H 98 01/13/19 17:53 01/13/19 17:53 01/13/19 17:53 01/13/19 17:53 01/13/19 17:53 - Notes Notes: General: Well-developed, well-nourished. In no acute distress. Non-toxic appearing. Cardiac: Well-perfused. Regular rate and rhythm. No murmurs, rubs, or gallops. Pulmonary: No respiratory distress. No cyanosis. Bilateral lung fiels are clear to auscultation. Abdominal: Non-distended. Non-rigid. Bowels sounds are present in all four quadrants. No guarding or rebound. HEENT: Head is atraumatic. Conjunctivae not reddened. No tearing. PERRL. EOMI. Orbits atraumatic. No periorbital swelling or erythema. Oropharynx is without erythema, swelling, or exudates. Neck: Supple. No adenopathy. No meningismus. Dermatologic: Warm with good turgor. No rash. Atraumatic. Chest: Atraumatic. No chest wall tenderness to palpation. Musculoskeletal: Moves all extremities well. No range of motion deficits. no muscular or joint tenderness. No paraspinal muscle tenderness. no midline spinal tenderness or step-off. Genitourinary: Examination deferred Neurologic: No gross neurologic deficits. Psychiatric: Normal mood. Course - Re-evaluation Re-evalutation: 01/13/19 21:20 Ultrasound shows fibroids. Will discharge - Vital Signs Vital signs: Temp Pulse Resp BP Pulse Ox 98.4 F 93 22 H 184/91 H 98 01/13/19 17:53 01/13/19 17:53 01/13/19 17:53 01/13/19 17:53 01/13/19 17:53 - Laboratory Result Diagrams: 01/13/19 18:36 01/13/19 18:36 Laboratory results interpreted by me: 01/13/19 01/13/19 01/13/19 18:36 18:36 18:36 WBC 10.7 H RDW 17.9 H Glucose 122 H AST 13 L Urine Blood LARGE H Discharge - Discharge Clinical Impression: Fibroid uterus Qualifiers: Uterine leiomyoma location: unspecified location Qualified Code(s): D25.9 - Leiomyoma of uterus, unspecified Condition: Good Disposition: HOME, SELF-CARE Additional Instructions: Your ultrasound indicates that you have multiple fibroid tumors of your uterus. This could very well be the cause of your excessive bleeding. Recommend that you follow-up promptly with your [facility] on Tuesday to discuss future treatment. Ronks as needed for pain in the meantime Prescriptions: Hydrocodone/Acetaminophen [Ronks 5-325 mg Tablet] 1 tab PO Q6HP PRN #12 tablet PRN Reason: Referrals: EDWARD FRANK PA [NO LOCAL MD] - Follow up as needed
--- NOTE | 2019-01-13 21:07 | RADIOLOGY REPORT (SQ) ---
EXAM DESCRIPTION: US TRANSVAGINAL COMPLETED DATE/TME: 01/13/2019 18:02 CLINICAL HISTORY: pelvic pain with vaginal bleeding COMPARISON: None. FINDINGS: Transvaginal images of the pelvis were submitted. The uterus measures 11.2 x 5.9 cm. There are multiple hypoechoic and isoechoic masses within the uterus, largest measuring 1.8 cm, compatible with fibroids. Endometrial complex measured 8 mm in transverse diameter which is within normal limits. Small echogenic foci at the level of the cervical canal may represent air. Ovaries were not visualized. There is no adnexal mass.. IMPRESSION: Myomatous uterus. Echogenic foci at the level of the cervical canal may represent air. Ovaries were not visualized. There is no adnexal mass.
[2019-01-13 21:42] VITALS: BP 141/83
== END 2019-01-13 21:42 | disposition home or self-care (01) ==
LOC: ER 17:39
DX: D25.9 Leiomyoma of uterus, unspecified (principal); N93.9 Abnormal uterine and vaginal bleeding, unspecified; R10.2 Pelvic and perineal pain; F17.200 Nicotine dependence, unspecified, uncomplicated; I10 Essential (primary) hypertension; Z79.3 Long term (current) use of hormonal contraceptives
CPT/HCPCS: 99284; 36415; 84703; 85025; 80053; 81001; 76830; 93976; J1170; J2405

== ENCOUNTER 2019-02-01 08:11 | Day surgery (SDC) | payer BC ==
[2019-01-29 11:55] LABS: APPEARANCE,URINE CLEAR; BILIRUBIN,URINE NEGATIVE (NEGATIVE); COLOR,URINE STRAW; GLUCOSE, URINE NEGATIVE (NEGATIVE); KETONES,URINE NEGATIVE (NEGATIVE); LEUKOCYTE ESTERASE,URINE NEGATIVE (NEGATIVE); NITRITE,URINE NEGATIVE (NEGATIVE); PROTEIN,URINE NEGATIVE (NEGATIVE); URINE SPECIFIC GRAVITY 1.009; UROBILINOGEN,URINE NEGATIVE mg/dL (<2.0)
[2019-01-29 12:05] LABS: HEMATOCRIT 39.5 % (36.0-47.0); HEMOGLOBIN 12.7 g/dL (12.0-15.5); MEAN CORPUSCULAR HGB CONC 32.1 g/dL (32.0-36.0); MEAN CORPUSCULAR VOLUME 84 fl (80-97); PLATELET COUNT 357 10^3/uL (150-450); RED BLOOD COUNT 4.69 10^6/uL (3.72-5.28); RED CELL DISTRIBUTION WIDTH 17.4 % (11.5-14.0); WHITE BLOOD COUNT 11.8 10^3/uL (4.0-10.5)
--- NOTE | 2019-01-29 12:21 | RADIOLOGY REPORT (SQ) ---
EXAM DESCRIPTION: CHEST PA/LATERAL COMPLETED DATE/TIME: 01/29/2019 11:56 am REASON FOR STUDY: PRE-OP COMPARISON: None. EXAM PARAMETERS: NUMBER OF VIEWS: two views TECHNIQUE: Digital Frontal and Lateral radiographic views of the chest acquired. RADIATION DOSE: NA LIMITATIONS: none FINDINGS: LUNGS AND PLEURA: No opacities, masses or pneumothorax. No pleural effusion. MEDIASTINUM AND HILAR STRUCTURES: No masses or contour abnormalities. HEART AND VASCULAR STRUCTURES: Heart normal size. No evidence for failure. BONES: No acute findings. HARDWARE: None in the chest. OTHER: No other significant finding. IMPRESSION: NO SIGNIFICANT RADIOGRAPHIC FINDING IN THE CHEST. TECHNICAL DOCUMENTATION: JOB ID: [id number] [facility]- All Rights Reserved Reading location - IP/workstation name: [email or web address]
[2019-01-29 12:39] LABS: ALANINE AMINOTRANSFERASE 16 U/L (9-52); ALBUMIN 4.3 g/dL (3.5-5.0); ALKALINE PHOSPHATASE 116 U/L (38-126); ANION GAP 12 (5-19); ASPARTATE AMINO TRANSFERASE 12 U/L (14-36); BILIRUBIN,DIRECT 0.3 mg/dL (0.0-0.4); BILIRUBIN,TOTAL 0.3 mg/dL (0.2-1.3); BLOOD UREA NITROGEN 10 mg/dL (7-20); CALCIUM 10.4 mg/dL (8.4-10.2); CARBON DIOXIDE 27 mmol/L (22-30); CHLORIDE 101 mmol/L (98-107); GLUCOSE 116 mg/dL (75-110); POTASSIUM 4.8 mmol/L (3.6-5.0); SODIUM 139.7 mmol/L (137-145); TOTAL PROTEIN 7.3 g/dL (6.3-8.2)
--- NOTE | 2019-01-29 13:19 | EKG REPORT ---
SEVERITY:- NORMAL ECG - SINUS RHYTHM : Confirmed by: Thompson Gu MD 29-Jan-2019 13:17:46
[2019-02-01] MEDS ORDERED: CEFAZOLIN 1 GM/D5W RTU 1 GM/50 ML RTUPB IV ONE (08:19)
[2019-02-01] MEDS ORDERED: FENTANYL CITRATE INJ/PF 100 MCG/2 ML AMPUL ONE ×2 (11:37→14:37)
[2019-02-01] MEDS ORDERED: FENTANYL CITRATE INJ/PF 250 MCG/5 ML AMPULE ONE (11:37)
[2019-02-01] MEDS ORDERED: MIDAZOLAM 2 MG/2 ML INJ ONE (11:37)
[2019-02-01] MEDS ORDERED: PROPOFOL INJ 200 MG/20 ML VIAL IV ONE (11:38)
[2019-02-01] MEDS ORDERED: FENTANYL CITRATE INJ/PF 100 MCG/2 ML AMPUL IV PRN ×6 (12:52→12:53)
[2019-02-01] MEDS ORDERED: MEPERIDINE HCL/PF INJ 25 MG/1 ML DISP.SYRIN IV PRN ×2 (12:52→12:53)
[2019-02-01] MEDS ORDERED: MORPHINE SULFATE 10 MG/ML INJ IV PRN ×3 (12:52→15:00)
[2019-02-01] MEDS ORDERED: PROMETHAZINE HCL INJ 25 MG/1 ML VIAL IV PRN ×4 (12:52→12:53)
[2019-02-01] MEDS ORDERED: OXYCODONE-ACETAMINOPHEN 5-325 MG TABLET PO PRN ×4 (12:52→12:53)
[2019-02-01] MEDS ORDERED: DIPHENHYDRAMINE HCL 50 MG/ML VIAL IV PRN ×2 (12:52→12:53)
[2019-02-01] MEDS ORDERED: ONDANSETRON HCL INJ/PF 4 MG/2 ML SDV IV PRN (12:53)
[2019-02-01] MEDS ORDERED: LIDOCAINE 2% INJ-PF (20 MG/ML) 2 ML AMPUL ONE (13:53)
[2019-02-01] MEDS ORDERED: GLYCOPYRROLATE 1 MG/5 ML SYRINGE ONE (13:53)
[2019-02-01] MEDS ORDERED: KETOROLAC TROMETHAMINE 60 MG/2 ML SDV ONE (13:53)
[2019-02-01] MEDS ORDERED: ROCURONIUM BROMIDE INJ 50 MG/5 ML VIAL IV ONE (13:53)
[2019-02-01] MEDS ORDERED: DEXAMETHASONE SOD PHOSPHATE INJ 4 MG/1 ML VIAL ONE (13:53)
[2019-02-01] MEDS ORDERED: NEOSTIGMINE METHYLSULFATE 10 MG/10 ML VIAL ONE (13:53)
[2019-02-01] MEDS ORDERED: ONDANSETRON HCL INJ/PF 4 MG/2 ML SDV ONE (13:53)
[2019-02-01] MEDS ORDERED: ACETAMINOPHEN 1,000 MG/100 ML RTUPB IV ONE (14:59)
[2019-02-01] MEDS ORDERED: RINGERS SOLUTION,LACTATED 1,000 ML IV PRN (15:00)
[2019-02-01] MEDS: HYDROMORPHONE HCL INJ/PF 2 MG/ML AMPULE ONE ×2 (15:02→15:09)
[2019-02-01] MEDS: OXYCODONE-ACETAMINOPHEN 5-325 MG TABLET PO PRN (17:07)
--- NOTE | 2019-02-01 19:20 | OPERATIVE REPORT E ---
Operative Report NAME: MAYNOR NIEVES : 1970 AGE: 48Y DATE OF SURGERY: 02/01/2019 ROOM: 206 PREOPERATIVE DIAGNOSIS: SYMPTOMATIC FIBROID, ABNORMAL UTERINE BLEEDING, DYSMENORRHEA. POSTOPERATIVE DIAGNOSIS: SYMPTOMATIC FIBROID, ABNORMAL UTERINE BLEEDING, DYSMENORRHEA. OPERATION: ROBOTIC ASSISTED TOTAL LAPAROSCOPIC HYSTERECTOMY WITH BILATERAL SALPINGECTOMY AND LYSIS OF ADHESIONS. SURGEON: ANTONIO GOMEZ M.D. ELECTRIC MOTOR CONTROL ASSEMBLER: Prema Marr, research program assistant surgical elastic knitter hand frame ANESTHESIA: Dr. Carey general. FINDINGS: There are multiple small fibroids of the uterus, one small pedunculated on the posterior. There were multiple bladder adhesions adhering the bladder to the lower uterine segment with very thick, poorly pliable tissue. COMPLICATIONS: None. ESTIMATED BLOOD LOSS: 600 mL SPECIMENS REMOVED: Uterus, cervix, and fallopian tubes bilaterally. PROCEDURE: The patient was taken to the operating room, prepared and draped in normal sterile fashion in dorsal lithotomy position. Under sterile conditions, a Perez catheter was placed to gravity. The speculum was then placed into the vagina, and the cervix was grasped with a single-tooth tenaculum and prepped with Betadine. The cervix was then transected with the sound, and sounded to approximately 8 cm. The cervix was then dilated to accommodate a medium VCare manipulator, which was placed without difficulty. The speculum and tenaculum were then removed. Gloves were changed and attention was turned to the upper portion of the case. A skin incision was made approximately 2 cm above the umbilicus and extended for approximately 3 cm. This was carried through to the underlying layer of fascia with the same scalpel. The fascia was grasped with two Catalina clamps and transected using sharp dissection with Mayocecilio. This incision was then extended to accommodate the entire length of the incision. A Gelport was then placed without difficulty. Abdomen was inflated with approximately 2 liters of CO2 gas, and the camera was introduced, and the patient was placed in steep Trendelenburg. The above findings were noted. The ovaries were inspected and found to be normal for a perimenopausal woman, with no cyst or any other pathology noted. We did note the dense adhesions of the bladder at this time. Under direct visualization, two 5 mm ports were placed approximately 10 cm on either side of the umbilicus. The robot was then docked, and the monopolar scissors and vessel sealer were placed appropriately. I then unscrubbed at the console where, beginning with the left adnexa, removed the left fallopian tube using the monopolar scissors and vessel sealer as needed. I then transected the uterovarian ligament and continued skeletonization and ligation of the uterine artery down to the level of the superior cervical canal. I then went to the right adnexa and repeated this procedure with the right fallopian tube, and removed this in a similar fashion, and again transected the right uterovarian ligament down to the upper aspect of the cervical canal. I then continued with ligation of the uterine artery bilaterally using the vessel sealer, and I was able to then begin bladder adhesions and dissect these down with the monopolar scissors and some blunt dissection with a vessel sealer. It was noted that these adhesions were indeed quite tough, and very nonpliable. I was able to loosen them up accordingly, and then went to the left cervical canal and continued with ligation of the uterine artery and transecting the bladder adhesions with monopolar scissors and vessel sealer as needed, and dissecting the bladder away until I was finally able to locate the VCare cup through the mucosa. I then began on the anterior aspect as this presented itself most readily, and following the VCare, I began the colporrhaphy in a circumferential fashion until the specimen was completely freed. The specimen was then removed through the vaginal opening, and the instruments were changed to a willam needle hog driver and Prograf. The V-LOC needle was introduced and I began closing the vaginal cuff using the V-LOC. Approximately [address], the needle did break off of the suture. We tried to remove it through the assistance port; however, it was unsuccessful due to the curvature of the needle and unable to fit through the assistance port without being on a suture. We placed a 12 mm trocar through the remainder of the vaginal opening, and the needle was placed inside the trocar, and the needle was removed in this fashion without further difficulty. Another V-LOC needle was then introduced, and the rest of the vaginal cuff was then closed using the second V-LOC suture. The sutures were then both trimmed and the remaining suture and needle were removed through the assistance port. We then inspected the ureters and found them to be peristalsing normally with no signs of hydroureter. The robot was then undocked and the fascia was closed with 0 Vicryl. The three skin incisions were closed with 4-0 Vicryl, and the patient was taken to recovery in stable condition. Sponge, lap, and needle counts were correct x2. DICTATING PHYSICIAN: ANTONIO GOMEZ M.D. [id number] PHY#: [id number] ID: [id number] JOB#: [id number] ACCT: [id number] cc:ANTONIO GOMEZ M.D. >
[2019-02-01] MEDS ORDERED: DEXTROSE 40% GEL 15 GM TUBE X 2 PO PRN (19:30)
[2019-02-01] MEDS ORDERED: DEXTROSE 50%-WATER SYRINGE 25 GM/50 ML DOSE IV PRN (19:30)
[2019-02-01] MEDS ORDERED: DEXTROSE 50%-WATER SYRINGE 12.5 GM/25 ML DOSE IV PRN (19:30)
[2019-02-01] MEDS ORDERED: GLUCAGON,HUMAN RECOMB 1 MG INJ IM PRN (19:30)
[2019-02-01] MEDS ORDERED: DEXTROSE 40% GEL 15 GM TUBE PO PRN (19:30)
[2019-02-01] MEDS ORDERED: INSULIN LISPRO 100 UNIT/ML 3 ML VIAL SUBCUT SCH (20:00)
[2019-02-01] MEDS ORDERED: INSULIN LISPRO 100 UNIT/ML 3 ML VIAL SUBCUT ONE (21:45)
[2019-02-01] MEDS: ACETAMINOPHEN 1,000 MG/100 ML RTUPB IV SCH (21:47)
[2019-02-01] MEDS: KETOROLAC TROMETHAMINE INJ/PF 30 MG/1 ML SDV IV SCH (21:47)
[2019-02-02] MEDS: OXYCODONE-ACETAMINOPHEN 5-325 MG TABLET PO PRN ×2 (04:44→10:27)
[2019-02-02] MEDS: ACETAMINOPHEN 1,000 MG/100 ML RTUPB IV SCH (05:02)
[2019-02-02] MEDS: KETOROLAC TROMETHAMINE INJ/PF 30 MG/1 ML SDV IV SCH (05:02)
[2019-02-02 07:01] LABS: HEMATOCRIT 31.4 % (36.0-47.0); MEAN CORPUSCULAR HEMOGLOBIN 26.9 pg (27.0-33.4); MEAN CORPUSCULAR HGB CONC 31.7 g/dL (32.0-36.0); MEAN CORPUSCULAR VOLUME 85 fl (80-97); PLATELET COUNT 270 10^3/uL (150-450); RED BLOOD COUNT 3.71 10^6/uL (3.72-5.28); RED CELL DISTRIBUTION WIDTH 16.9 % (11.5-14.0); WHITE BLOOD COUNT 12.5 10^3/uL (4.0-10.5)
[2019-02-02] MEDS ORDERED: METFORMIN HCL 500 MG TABLET PO SCH (08:00)
[2019-02-02] MEDS ORDERED: INSULIN LISPRO 100 UNIT/ML 3 ML VIAL SUBCUT SCH (08:00)
[2019-02-02] MEDS ORDERED: HYDROCHLOROTHIAZIDE 12.5 MG TABLET PO SCH (10:00)
[2019-02-02] MEDS ORDERED: LOSARTAN POTASSIUM 50 MG TABLET PO SCH (10:00)
[2019-02-02] MEDS ORDERED: AMLODIPINE BESYLATE 10 MG TABLET PO SCH (10:00)
--- NOTE | 2019-02-02 10:45 | PDOC DISCHARGE SUMMARY ---
General - Admit/Disc Date/PCP Admission Date/Primary Care Provider: HANNAH JIN MD Discharge Date: 02/02/19 - Discharge Diagnosis (1) Pelvic pain Is this a current diagnosis for this admission?: Yes (2) Leiomyoma of body of uterus Is this a current diagnosis for this admission?: Yes (3) Abnormal uterine bleeding Is this a current diagnosis for this admission?: Yes (4) Bladder adhesions Is this a current diagnosis for this admission?: Yes - Additional Information Home Medications: Hydrocodone/Acetaminophen [Moroni 5-325 mg Tablet] 1 tab PO Q6HP PRN #12 tablet 01/13/19 Hydrochlorothiazide 12.5 mg PO DAILY 01/29/19 Metformin HCl 1,000 mg PO BID 01/29/19 Amlodipine Besylate [Norvasc 10 mg Tablet] 10 mg PO DAILY 02/01/19 Losartan Potassium 50 mg PO DAILY 02/01/19 History of Present Illness History of Present Illness: MAYNOR NIEVES is a 48 year old female Hospital Course Hospital Course: underwent RATLH w/ b/l salpingectomy without difficulty. normal post operative course. tolerating regular diet Physical Exam - Physical Exam Vital Signs: Temp Pulse Resp BP Pulse Ox 98.1 F 80 18 150/80 H 97 02/02/19 07:14 02/02/19 07:14 02/02/19 07:14 02/02/19 07:14 02/02/19 07:14 Pulse Oximeter Nocturnal Start: 02/01/19 15:41 Freq: Q Status: Active Protocol: Document 02/01/19 21:33 BOR (Rec: 02/01/19 21:35 [facility] [id number]) Nocturnal Pulse Oximetry Equipment Usage Equipment in Use Nocturnal Spo2 Charge Charge Now Oxygen Delivery Method (includes room Room Air air) O2 Sat by Pulse Oximetry (92-100) 97 Continuous Pulse Oximeter Set Up No: Set up already at by RN Continuous SpO2 Machine # [id number] Other Primary RN said that the patient was already on the Continous pulse ox this afternoon, patient was already on machine N10 upon entering room. Intake & Output 02/01/19 02/02/19 02/03/19 06:59 06:59 06:59 Intake Total 2650 Output Total 2500 Balance 150 Weight 126.55 kg General appearance: PRESENT: no acute distress, cooperative GI/Abdominal exam: PRESENT: soft - incisions clean/dry/intact. no erythema or edema Result Laboratory Results: 02/02/19 06:19 02/01/19 08:46 02/02/19 06:19 WBC 12.5 H RBC 3.71 L Hgb 10.0 L Hct 31.4 L MCV 85 MCH 26.9 L MCHC 31.7 L RDW 16.9 H Plt Count 270 Impressions: Chest X-Ray 01/29/19 11:50 IMPRESSION: NO SIGNIFICANT RADIOGRAPHIC FINDING IN THE CHEST. Plan Discharge Plan: keep follow up appt with me in 2 wks. Time Spent: Less than 30 Minutes Acute Heart Failure Is this a Heart Failure Patient?: No LVEF < 40%?: No- if no continue to question #3
[2019-02-02 10:52] VITALS: BP 114/67
[2019-02-02] MEDS ORDERED: IBUPROFEN 800 MG TABLET PO PRN (12:00)
== END 2019-02-02 11:37 | disposition home or self-care (01) ==
LOC: OROUT 08:11 → 2N 16:00 → OROUT 02-02 11:37
PROVIDERS: ATTEND Obstetrics & Gynecology
DX: N94.6 Dysmenorrhea, unspecified (principal); N84.0 Polyp of corpus uteri; N80.0 Endometriosis of uterus; D25.1 Intramural leiomyoma of uterus; D25.0 Submucous leiomyoma of uterus; D25.2 Subserosal leiomyoma of uterus; N93.9 Abnormal uterine and vaginal bleeding, unspecified; K66.0 Peritoneal adhesions (postprocedural) (postinfection); I10 Essential (primary) hypertension; E11.9 Type 2 diabetes mellitus without complications; F17.210 Nicotine dependence, cigarettes, uncomplicated; Z79.899 Other long term (current) drug therapy; Z79.84 Long term (current) use of oral hypoglycemic drugs
CPT/HCPCS: 58571; S2900; 36415; 71046; 80053; 81001; 81025; 82962; 840; 84132; 85027; 86850; 86900; 86901; 88307; 93005; 93010; 94762; J0131; J0690; J1100; J1170; J1815; J1885; J2250; J2270; J2405; J2704; J2710; J3010; J3490; J7120

== ENCOUNTER → 2019-07-31 | Outpatient (CLI) | payer BC ==
--- NOTE | 2019-07-31 14:43 | RADIOLOGY REPORT (SQ) ---
EXAM DESCRIPTION: HIP RIGHT AP/LATERAL COMPLETED DATE/TIME: 07/31/2019 2:30 pm REASON FOR STUDY: PAIN IN RT HIP M25.551 PAIN IN RIGHT HIP G89.29 OTHER CHRONIC PAIN COMPARISON: None. NUMBER OF VIEWS: Two views. TECHNIQUE: AP pelvis and additional frog-leg view of the right hip. LIMITATIONS: None. FINDINGS: MINERALIZATION: Normal. RIGHT HIP: Joint space narrowing with subchondral sclerosis. No acute fracture or dislocation. LEFT HIP: Joint space narrowing. No acute fracture or dislocation. PUBIS AND ISCHIUM: No fracture. PELVIS: No fracture. SACRUM: No fracture or dislocation. No worrisome bone lesions. LOWER LUMBAR SPINE: No fracture or dislocation. No worrisome bone lesions. No significant disc disea se. SOFT TISSUES: No findings. OTHER: No other significant finding. IMPRESSION: Bilateral degenerative changes. No acute fracture or dislocation. TECHNICAL DOCUMENTATION: JOB ID: [id number] [employer]- All Rights Reserved Reading location - IP/workstation name: [email or web address]
== END ==
LOC: OD 14:13
PROVIDERS: ATTEND Family Medicine
DX: M16.0 Bilateral primary osteoarthritis of hip (principal); M25.551 Pain in right hip; G89.29 Other chronic pain

== ENCOUNTER → 2020-05-27 | Outpatient (CLI) | payer BC ==
--- NOTE | 2020-05-27 13:01 | WOMENS IMAGING REPORT ---
EXAM DESCRIPTION: BILAT SCREENING MAMMO W/CAD IMAGES COMPLETED DATE/TIME: 05/27/2020 12:00 pm REASON FOR STUDY: Z12.31 ENCOUNTER FOR SCREENING MAMMOGRAM FOR MALIGNANT NEOPLASM OF BREAST Z12.31 ENCNTR SCREEN MAMMOGRAM FOR MALIGNANT NEOPLASM OF ANETTE COMPARISON: None. EXAM PARAMETERS: Standard craniocaudal and mediolateral oblique views of each breast recorded using digital acquisition. Read with the assistance of CAD. .[facility] - [employer] Technician Version 9.2 LIMITATIONS: None. FINDINGS: No suspicious masses, suspicious calcifications or architectural distortion. No areas of c oncern. IMPRESSION: NEGATIVE MAMMOGRAM. BIRADS 1 BREAST DENSITY: b. There are scattered areas of fibroglandular density. BIRAD: ASSESSMENT: 1 NEGATIVE RECOMMENDATION: ROUTINE SCREENING COMMENT: The patient has been notified of the results by letter per MQSA requirements. Additional no tification policies are in place for contacting patient with suspicious or incomplete findings. Quality ID #[id number]: The [employer] recommends an annual screening mammogram for women aged 40 years or over. This facility utilizes a reminder system to ensure that all patients receive reminder letters, and/or direct phone calls for appointments. This includes reminders for routine scr eening mammograms, diagnostic mammograms, or other Breast Imaging Interventions when appropriate. Th is patient will be placed in the appropriate reminder system. TECHNICAL DOCUMENTATION: FINDING NUMBER: (1) ASSESSMENT: (1) JOB ID: [id number] 2010 [employer]- All Rights Reserved Reading location - IP/workstation name: [email or web address]
== END ==
LOC: WI 11:33
PROVIDERS: ATTEND Physician Assistant
DX: Z12.31 Encounter for screening mammogram for malignant neoplasm of breast (principal)
CPT/HCPCS: 77067

== ENCOUNTER → 2020-08-25 | Outpatient (CLI) | payer BC ==
[2020-08-25 14:19] VITALS: BP 129/75
--- NOTE | 2020-08-25 14:19 | ER RDC ASSESSMENT REPORT ---
Intake - In the Last 14 days Have you traveled outside [place]?: No Have you been in close contact with someone CONFIRMED: Yes Worked in Healthcare?: No - Symptoms Subjective Fever(Jonancy feverish): No Chills: No Muscule Aches: No Runny Nose: No Sore Throat: No Cough (New or worsening chronic cough): No Shortness of breath: No Nausea or Vomiting: No Headache: No Abdominal Pain: No Diarrhea(3 or more loose stools in last 24 hours): No - Do you have any of the following Chronic lung disease: Asthma or emphysema or COPD: No Cystic Fibrosis: No Diabetes: No High Blood Pressure: Yes Cardiovascular Disease: Yes Chronic Kidney Disease: No Chronic Liver Disease: No Chronic blood disorder like Sickle Cell Disease: No Weak immune system due to disease or medication: No Neurologic condition that limits movement: No Developmental delay - Moderate to Severe: No Recent (within past 2 weeks) or current : No Morbid Obesity (>100 pounds over ideal weight): No Obesity Comment: Height 5 feet 11 inches weight 220 pounds - Objective Temperature: 97.7 F Pulse Rate: 87 Respiratory Rate: 18 Blood Pressure: 129/75 O2 Sat by Pulse Oximetry: 95 Objective: Given above, testing performed: If Testing Performed: Test Specimen Type Sent to General - General Information source: Patient Notes: Patient here at [facility] for Covid testing patient reports coworker has tested positive for Covid patient denies any known symptoms at this time. Patient's PCP is with [facility] and will follow up with them later. - Related Data Allergies/Adverse Reactions: No Known Allergies Allergy (Verified 01/13/19 17:42) Past Medical History - General Information source: Patient - SMokes a pack a day - Social History Smoking Status: Current Every Day Smoker Smoking Education Provided: Yes - Quit smoking Family History: Reviewed & Not Pertinent - Past Medical History Cardiac Medical History: Reports: Hx Hypertension Denies: Hx Coronary Artery Disease, Hx Heart Attack Pulmonary Medical History: Denies: Hx Asthma, Hx Bronchitis, Hx COPD, Hx Pneumonia Neurological Medical History: Denies: Hx Cerebrovascular Accident, Hx Seizures Renal/ Medical History: Denies: Hx Peritoneal Dialysis Musculoskeletal Medical History: Denies Hx Arthritis Psychiatric Medical History: Reports: Hx Depression Past Surgical History: Reports: Hx Section - x3 Physical Exam - General General appearance: Appears well, Alert In distress: None Notes: PHYSICAL EXAMINATION: GENERAL: Well-appearing and in no acute distress. HEAD: Atraumatic, normocephalic. EYES: sclera anicteric, conjunctiva are normal. ENT: nares patent. Moist mucous membranes. NECK: Normal range of motion, supple without lymphadenopathy LUNGS: CTAB and equal. No wheezes rales or rhonchi. RespirRations even and unlabored lung sounds clear. HEART: Regular rate and rhythm without murmurs ABDOMEN: Soft, nontender, normal bowel sounds, no guarding. EXTREMITIES: Normal range of motion, no pitting edema. No cyanosis. NEUROLOGICAL: Cranial nerves grossly intact. Normal speech. Normal gait. PSYCH: Normal mood, normal affect. SKIN: Warm, Dry, normal turgor, no rashes or lesions noted Diagnostic Results Laboratory Results: Pending Covid testing results. Patient provided instructions regarding Covid to include: As a person under investigation for Covid 19, the [facility], division of public health advises you to adhere to the following guidance until your test results are reported to you. If your test result is positive, you will receive additional information from your provider and your local health department at that time. Remain at home until you are cleared by the health provider or public health authorities. Keep a log of visitors to your home, notify any visitors to your home of your isolation status. If you plan to move to a new address or leave the county, notify the local health department in your County. Call your doctor or seek care if you have an urgent medical need. Before seeking medical care, call ahead to get instructions from the provider before arriving at the medical office clinic or hospital. Notify them that you are being tested for the virus that causes Covid 19 so that arrangements can be made, as necessary, to prevent transmission to others in the healthcare setting. Next, notify the local health department in your county. If a medical emergency arises and you need to call 911, inform the first responders that you are being tested for the virus that causes Covid 19. Next, notify the local health department in your county. Patient Education/Counseling Counseling/Education: Patient presents with upper respiratory symptoms worrisome for possible Covid 19. Patient does not have emergency worring symptoms such as difficulty breathing, shortness of breath, chest pain, pressure, confusion or cyanosis. Patient appears suitable for discharge. Patient instructed to follow-up with PCP at [facility]. Patient's vital signs are stable and patient is nontoxic in appearance. Good return precautions have been discussed with patient, patient verbalized understanding and is agreeable with discharge plan of care at this time. C Discharge - Discharge Clinical Impression: Encounter for screening laboratory testing for COVID-19 virus in asymptomatic patient Condition: Stable Disposition: Home; Selfcare
== END ==
LOC: RDC 12:54
PROVIDERS: ATTEND Nurse Practitioner Family
DX: Z20.828 Contact with and (suspected) exposure to other viral communicable diseases (principal); I10 Essential (primary) hypertension; E11.9 Type 2 diabetes mellitus without complications; M13.80 Other specified arthritis, unspecified site; F17.200 Nicotine dependence, unspecified, uncomplicated; Z71.6 Tobacco abuse counseling
CPT/HCPCS: 99201; 99211; U0003; C9803; 87635